=== PATIENT | female | born 1975 | race Asian ===

== ENCOUNTER 2016-11-24 20:12 | Emergency (ER) | payer OTHER ==
[~2016-11-24 20:12] MED LIST: NORVASC 5MG TAB5 MG PO; PROAIR HFA0.09 MG/Ac PO
[2016-11-24] MEDS ORDERED: LOSARTAN POTASS50 M1 PO (22:50)
[2016-11-24] MEDS ORDERED: VITAMIN D250000 UNIT PO (22:50)
[2016-11-24] MEDS ORDERED: ACETAMINOPHEN-1 EAC3 PO (22:51)
--- NOTE | 2016-11-24 23:17 | ED THROAT/DENTAL COMPLAINT ---
History of Present Illness General Chief Complaint: Sore Throat, Dental Pain Stated Complaint: PT HAD TOOTH PULLED TODAY AND STILL BLEEDING Source: patient Exam Limitations: no limitations Vital Signs & Intake/Output Vital Signs & Intake/Output Vital Signs Date Time Temp Pulse Resp B/P Pulse O2 O2 Flow FiO2 Ox Delivery Rate 11/24 2018 97.4 114 16 137/95 98 Room Air Allergies Coded Allergies: NO KNOWN ALLERGIES (11/24/16) Reconcile Medications Acetaminophen With Codeine (Acetaminophen-Cod #3 Tablet) 300 MG-30 MG TABLET 1 TAB PO Q6P PRN PAIN (Reported) Ergocalciferol (Vitamin D2) (Vitamin D2) 50,000 UNIT CAPSULE 1 CAP PO QW SUPPLEMENT (Reported) Losartan Potassium 50 MG TABLET 1 TAB PO DAILY BP (Reported) Triage Note: TRIAGE; PT TO ED C/O LT UPPER TOOTH PAIN AND BLEEDING. STATES SHE HAD A TOOTH PULLED THERE TODAY AND SINCE THEN IT HASNT STOPPED BLEEDING AND IS CONCERNED. TRIED CALLING THE OFFICE, BUT NOBODY ANSWERED. Triage Nurses Notes Reviewed? yes Onset: Abrupt Duration: intermittent Timing: single episode today Severity: moderate Severity Numbers: 5 : No Patient currently breastfeeds: No HPI: Patient is a 41-year-old female who presents emergency room saying that this afternoon patient had number 14 dental tooth extraction which she states that she has been intermittently bleeding since. Patient has not to apply direct pressure gauze to the region. States that the pain medication has improved her pain and patient was given prophylactic antibiotics. It is not on a blood thinner Past History Travel History Traveled to [place] past 21 day No Medical History Any Pertinent Medical History? none Surgical History Surgical History: non-contributory Psychosocial History What is your primary language [place] Tobacco Use: Never used Family History Hx Contributory? No Review of Systems Review of Systems Constitutional: Reports: no symptoms. EENTM: Reports: see HPI, mouth pain. Respiratory: Reports: no symptoms. Cardiovascular: Reports: no symptoms. GI: Reports: no symptoms. Genitourinary: Reports: no symptoms. Musculoskeletal: Reports: no symptoms. Skin: Reports: no symptoms. Neurological/Psychological: Reports: no symptoms. Hematologic/Endocrine: Reports: see HPI, bleeding. Immunologic/Allergic: Reports: no symptoms. All Other Systems: Reviewed and Negative Physical Exam Physical Exam General Appearance: no apparent distress, alert, comfortable Mouth/Throat: pharynx normal Comments: Well-developed well-nourished no apparent distress. HEENT: Atraumatic, extraocular motion intact Neck: Supple, no lymphadenopathy Back: Nontender Respiratory: No respiratory distress Extremities: No edema, full range of motion Neuro: Alert and oriented x3 Psych: Mood affect normal, normal memory normal judgment. Diagram Dental: 1) Complete tooth avulsion noted with no active bleeding with minimal surrounding dried blood Mild generalized tenderness noted no swelling no active discharge Core Measures ACS in differential dx? No Severe Sepsis Present: No Septic Shock Present: No Progress Differential Diagnosis: aspirated tooth, carious tooth, epiglottitis, Ludwigs angina, meningitis, odontogenic abscess, dolly-tonsillar abscess, pharyngeal for. body, stomatitis/gingivitis, strep pharyngitis, tooth fracture Plan of Care: I discussed with patient that if bleeding does recur to apply gauze in which this was provided to the patient to improve the bleeding. Patient states that she did not try to put anything on it and let the gum continuously bleed in which she thought it would spontaneously resolve. At this time on physical exam findings there are no signs of active bleeding and no concerns of infection. Patient was strongly advised to follow-up with the provider who performed the tooth extraction today and to return to emergency room if signs of infection occur she will comply Departure Departure Disposition: HOME OR SELF CARE Condition: Stable Clinical Impression Primary Impression: S/P tooth extraction Referrals: SAMANTHA BHAT MD (PCP/Family) Additional Instructions: As discussed if bleeding reoccurs begin to apply direct pressure with the gauze and bandages provided to the emergency room. If bleeding still continues after 20 minutes return to the emergency room. Follow-up with your dentist as directed. Continue medications for pain and antibiotics previously prescribed. Departure Forms: Customer Survey General Discharge Information
[2016-11-25 01:30] VITALS: BP 130/69
== END 2016-11-25 01:30 ==
LOC: ERH 20:12
DX: Z98.818 Other dental procedure status (principal)
CPT/HCPCS: 99282